=== PATIENT | male | born 1960 | race Caucasian/White ===

== ENCOUNTER → 2021-12-12 08:42 | Outpatient (CLI) | payer OTHER, BC, SELFPAY ==
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
--- NOTE | 2021-12-12 08:56 | XR_ITS ---
FINAL REPORT CLINICAL HISTORY: R/O METAL IN EYES for MRI FINDINGS: ORBITS Look up and look down views of the orbits were obtained. No foreign bodies were identified. No fracture is seen. The visualized sinuses are clear. IMPRESSION: No foreign bodies identified. Reviewed, Interpreted and Dictated by Javier Teran MD Transcribed by Allan Macias Authenticated by Javier Teran MD on 12/12/2021 09:46:24 AM [facility]
== END ==
PROVIDERS: PCP Family Medicine; Visit Provider Family Medicine
DX: H05.53 Retained (old) foreign body following penetrating wound of bilateral orbits (principal); S89.91XA Unspecified injury of right lower leg, initial encounter; M25.561 Pain in right knee; M23.91 Unspecified internal derangement of right knee
CPT/HCPCS: 70200; 73721

== ENCOUNTER 2025-02-12 20:25 | Emergency (ER) | payer BC, SELFPAY ==
[2025-02-12] VITALS (7 sets, daily range): BP systolic 102–152; BP diastolic 65–99; PULSE 56–70; RESP 14–17; TEMP 36.7; O2SAT 95–99; BMI 25.8
--- NOTE | 2025-02-12 20:25 | ECG_ITS ---
APPROVED REPORT Exam: Resting ECG HR:67 bpm ECG Measurements Heart Rate 67 AXES NC 166 P 40 QRSd 90 QRS 25 QT 371 T 44 QTc 387 Conclusion SINUS RHYTHM NORMAL ECG Electronically signed by : ANH RACHEL, 02/12/2025 23:28:21
--- OUTSIDE RECORDS SUMMARY | 2025-02-12 20:38 | XMS_ITS | Clinical Summary ---
Author Organization [facility] Address [address] [place] [address] Care Team Providers Care Catering Assistant Name Role Phone Unavailable Primary Care Provider Unavailabl e Social History Tobacco Use Types Packs/Day Years Used Date Smoking Tobacco: Never Assessed Sex and Gender Information Value Date Recorded Sex Assigned at Male 04/02/2022 10:01 AM CDT Legal Sex Male 10:01 AM CDT Gender Identity Male 04/02/2022 10:01 AM CDT Sexual Orientation Not on file Plan of Treatment Not on file
--- OUTSIDE RECORDS SUMMARY | 2025-02-12 20:38 | XMS_ITS | Referral Summary ---
Author Organization [facility] Address [address] [place] [address] Care Team Providers Care Customer Acquisition Manager Name Role Phone Unavailable Primary Care Provider [...]
--- NOTE | 2025-02-12 20:52 | ED_ITS ---
Discharge Plan Disposition Patient Disposition: Xfer Short-Term Hosp Condition: Good Prescriptions Prescriptions: No Action No Known Home Medications Referrals Follow up/Referrals: Provider,MD Amanda [Referring, Medical] - See instructions Clinical Impressions Clinical Impression: Splenic mass, Hemorrhage of spleen, Alcohol abuse, Hyponatremia Stand Alone Forms Stand Alone Forms: Transfer Record - ED Print Language Print Language: Albanian Discharge ED Provider: Roshan Nolan General Adult HPI <Roshan Nolan MD - Last Filed: 02/12/25 23:31> General Chief complaint: Chest Pain Stated complaint: chest pain Time Seen by Provider: 02/12/25 20:52 Mode of Arrival: Ambulatory Source of Information: Patient Description of Symptoms (Recalled from ER Triage Doc. by RN): pt reports chest pain that began at work today that is worse with movement. pt unsure of what time it began. pt reports it is worse on the right side. History of Present Illness HPI narrative: The patient, a 64-year-old male, presents to the Emergency Department with a chief complaint of severe right-sided chest pain that started today. He describes a dull pain localized to the right side of his chest, which worsens with movement, particularly when getting up or stretching his arm. The patient experiences intermittent sharp exacerbations of the pain, even when sitting still. The pain is aggravated by movement and deep breathing, though he states it don't hurt, hurt with breathing but he can feel it. He denies any abdominal pain. The patient mentions difficulty performing certain movements at work due to the pain. He describes having to reverse to his left side when getting up to avoid exacerbating the pain. His notes that he has a high pain tolerance, suggesting the severity of his current complaint. Associated symptoms include occasional feelings of irregular heartbeats. The patient also reports a history of night sweats and cold, clammy skin during sleep, which his states has been ongoing since last year. He denies any recent cough, flu-like symptoms, or other illnesses. The patient mentions a tick bite from a hiking trip 3-4 weeks ago but reports no subsequent rash. The patient's medical history is significant for a knee replacement three years ago. He takes a daily multivitamin for those over 50 and Aleve for arthritis pain. The patient denies smoking, any known heart or lung conditions, and does not report any rash on his skin. His occupation involves leaning over frequently, which may be relevant to his current symptoms. Please note that above description of symptoms, in this electronic medical record under categorization of recalled from ER triage doctor by RN are reflective of an initial nursing assessment, however, is not reflective of my full history and physical exam that was personally taken and clarified. Consequentially, this preceding description of symptoms, which may include the patient's categorized chief complaint in the EMR, do not reflect my personal clinical impression, and the ultimate description of history of present illness and patient stated complaints should be deferred to this section of the note. Unless stated otherwise or congruent with this section of the note, additional signs, symptoms, or incongruence should be interpreted as inaccurate with my clinical impression. Related Data Home Medications ?Medication ?Instructions ?Recorded ?Confirmed No Known Home Medications 04/09/1904/02 Allergies Allergy/AdvReac Type Severity Reaction Status Date / Time No Known Allergies Allergy Verified 04/17/19 07:14 [facility] <Roshan Nolan MD - Last Filed: 02/12/25 23:31> [facility] Disclaimer: The information contained in this section may have been updated after the patient was seen, as this information can be updated by other users. Social History (Updated 02/12/25 @ 23:31 by Roshan Nolan MD) Smoking Status: Never smoker alcohol intake: current current occupational status: employed Travel in the last 8 weeks?: None caffeine: Yes Have you lived/traveled outside US in past 30 days?: No Contact w/someone who lives/traveled outside US past 30 days?: No Exposure to someone with infectious disease in past 14 days?: No Do you have a fever (greater than 100.4 F or 38 C)?: No Have you tested positive for COVID-19?: No Exposed to someone with COVID-19 in past 14 days?: No Do you have a sore throat?: No Do you have a cough?: No Do you have any weakness?: No Do you have any diarrhea?: No Are you experiencing any unusual bleeding?: No Do you have any muscle aches/pain?: No Do you have any abdominal pain?: No Are you experiencing loss of taste or smell?: No <Roshan Nolan MD - Last Filed: 02/12/25 23:31> ROS Obtained: Yes other As per HPI Physical Exam <Roshan Nolan MD - Last Filed: 02/12/25 23:31> General General appearance: alert and in no apparent distress Head Head exam: atraumatic and normocephalic Eye Eye exam: Present normal appearance Neck Neck exam: Present normal inspection Chest Chest inspection: Present normal inspection and symmetric chest wall rise Respiratory Respiratory exam: Present normal lung sounds bilaterally; Absent respiratory distress Cardiovascular Cardiovascular exam: Present regular rate and normal rhythm Abdominal Exam Abdominal exam: Present soft Neurological Exam Neurological exam: Present alert and oriented X3 Psychiatric Psychiatric exam: Present normal affect and normal mood Skin Skin exam: Present warm and dry Other Other exam information: Reproducible right-sided chest wall tenderness to palpation. No rash. No abdominal tenderness Medical Decision Making <Roshan Nolan MD - Last Filed: 02/12/25 23:31> Medical Records Medical records reviewed: Yes I reviewed the patient's medical records. Screening: Per USPSTF and CDC recommendations, given the prevalence of disease in our region, it is our hospital?s policy to screen for HIV and viral Hepatitis for all patients aged 18 and over and those with ongoing risk factors. [place] Inquiry Pt receiving controlled substance: No Vital Signs: 02/12/25 20:29 02/12/25 20:30 02/12/25 21:00 Temperature 98.1 F Temperature Source Oral Pulse Rate 67 67 Pulse Rate [Right] 70 Respiratory Rate 17 14 Blood Pressure 135/88 Blood Pressure [Right Arm] 152/99 H Blood Pressure Mean [Right Arm] 116 Blood Pressure Source Blood Pressure Position 02 Sat by Pulse Oximetry 97 97 Oxygen Delivery Method 02/12/25 21:30 02/12/25 22:01 02/12/25 23:00 Temperature Temperature Source Pulse Rate 65 69 64 Pulse Rate [Right] Respiratory Rate 14 16 15 Blood Pressure 125/81 117/74 102/65 L Blood Pressure [Right Arm] Blood Pressure Mean [Right Arm] Blood Pressure Source Blood Pressure Position 02 Sat by Pulse Oximetry 99 95 95 Oxygen Delivery Method 02/12/25 23:30 02/13/25 00:00 02/13/25 01:00 Temperature Temperature Source Pulse Rate 56 L 62 59 L Pulse Rate [Right] Respiratory Rate 14 17 16 Blood Pressure 110/71 119/75 142/92 H Blood Pressure [Right Arm] Blood Pressure Mean [Right Arm] Blood Pressure Source Blood Pressure Position 02 Sat by Pulse Oximetry 95 97 99 Oxygen Delivery Method 02/13/25 01:15 02/13/25 01:30 02/13/25 02:03 Temperature 98 F Temperature Source Oral Pulse Rate 73 63 68 Pulse Rate [Right] Respiratory Rate 16 15 20 Blood Pressure 126/81 118/76 118/76 Blood Pressure [Right Arm] Blood Pressure Mean [Right Arm] Blood Pressure Source Automatic Cuff Blood Pressure Position Sitting 02 Sat by Pulse Oximetry 96 94 L Oxygen Delivery Method Room Air Lab Data Lab Results 02/12/25 20:23: PT 10.6, INR 0.95 02/12/25 20:27: WBC 9.5, RBC 4.54 L, Hgb 14.4, Hct 41.3 L, MCV 91.0, MCH 31.7 H, MCHC 34.9, RDW 12.8, Plt Count 180, MPV 10.0, Neut % (Auto) 59.3, Lymph % (Auto) 29.3, Brown % (Auto) 7.8, Eos % (Auto) 2.9, Baso % (Auto) 0.3, Neut # (Auto) 5.6, Lymph # (Auto) 2.8, Brown # (Auto) 0.7, Eos # (Auto) 0.3, Baso # (Auto) 0.0, D- Dimer 0.53 H, Sodium 130 L, Potassium 4.1, Chloride 102, Carbon Dioxide 22, Anion Gap 10.1, BUN 14, Creatinine 0.90, Estimated Creat Clear 84, Estimated GFR 85, Est GFR ( Amer) 103, Glucose 91, Calcium 9.6, Total Bilirubin 0.7, AST 42, ALT 34, Alkaline Phosphatase 37 L, Troponin I < 0.01, Total Protein 7.2, Albumin 4.4, Globulin 2.8, Albumin/Globulin Ratio 1.6, Lipase 162, HCV Ab JASON w/Rflx PCR Qn Negative, HIV Ag/Ab Combo Qual Negative 02/13/25 00:09: Troponin I < 0.01 02/12/25 20:27 02/12/25 20:27 Orders (Tests/Meds): ED MEDICATIONS Discontinued Medications Generic Name Dose Route Start Last Admin Trade Name Freq PRN Reason Stop Dose Admin Iopamidol 70 ml 02/12/25 22:05 02/12/25 22:05 Iopamidol-370 (76%);100ml Bottle IV 02/12/25 22:06 70 ml ONCE ONE Administration Iopamidol 80 ml 02/12/25 23:41 02/12/25 23:47 Iopamidol-370 (76%);100ml Bottle IV 02/12/25 23:42 80 ml ONCE ONE Administration Sodium Chloride 40 ml 02/12/25 22:05 02/12/25 22:05 0.9 % Sodium Chloride 50 Ml Vial IV 02/12/25 22:06 40 ml ONCE ONE Administration Sodium Chloride 10 ml 02/12/25 22:05 02/12/25 22:05 Sodium Chloride 0.9% 10ml Syr (Rad Only) IV 03/14/25 22:04 10 ml NEEDED PRN Administration Maintain IV Site Sodium Chloride 10 ml 02/12/25 23:41 02/12/25 23:47 Sodium Chloride 0.9% 10ml Syr (Rad Only) IV 03/14/25 23:40 10 ml NEEDED PRN Administration Maintain IV Site Sodium Chloride 40 ml 02/12/25 23:41 02/12/25 23:47 0.9 % Sodium Chloride 50 Ml Vial IV 02/12/25 23:42 40 ml ONCE ONE Administration ORDERS Category Date Time Status CT angio abdomen pelvis Stat Cat Scan 02/12/25 23:11 Completed CTA Chest [CT angio chest PE protocol] Stat Cat Scan 02/12/25 21:49 Completed XR chest 2V Stat Exams 02/12/25 21:09 Completed CBC w/Auto Diff [Complete Blood Count Auto Diff] Stat Lab 02/12/25 20:27 Completed CMP [Comprehensive Metabolic Panel] Stat Lab 02/12/25 20:27 Completed D-Dimer Stat Lab 02/12/25 20:27 Completed HIV Combo Stat Lab 02/12/25 20:27 Completed Hepatitis C Ab Qual. W/ RFX Stat Lab 02/12/25 20:27 Completed Lipase Stat Lab 02/12/25 20:27 Completed PT INR [Prothrombin Time INR] Stat Lab 02/13/25 00:00 Completed Troponin I Q3H Lab 02/12/25 20:27 Completed Troponin I Q3H Lab 02/13/25 00:09 Completed Medical Decision Narrative: Patient with history and exam per above presenting for evaluation of right- sided chest pain Diagnoses considered include ACS, PE, pneumonia, costochondritis, fracture, among others ED workup and treatment included: ED MEDICATIONS Generic Name Dose Route Start Last Admin Trade Name Freq PRN Reason Stop Dose Admin Sodium Chloride 10 ml 02/12/25 22:05 02/12/25 22:05 Sodium Chloride 0.9% 10ml Syr (Rad Only) IV 03/14/25 22:04 10 ml NEEDED PRN Administration Maintain IV Site Discontinued Medications Generic Name Dose Route Start Last Admin Trade Name Freq PRN Reason Stop Dose Admin Iopamidol 70 ml 02/12/25 22:05 02/12/25 22:05 Iopamidol-370 (76%);100ml Bottle IV 02/12/25 22:06 70 ml ONCE ONE Administration Sodium Chloride 40 ml 02/12/25 22:05 02/12/25 22:05 0.9 % Sodium Chloride 50 Ml Vial IV 02/12/25 22:06 40 ml ONCE ONE Administration ORDERS Category Date Time Status CT angio abdomen pelvis Stat Cat Scan 02/12/25 23:11 Ordered CTA Chest [CT angio chest PE protocol] Stat Cat Scan 02/12/25 21:49 Completed XR chest 2V Stat Exams 02/12/25 21:09 Completed CBC w/Auto Diff [Complete Blood Count Auto Diff] Stat Lab 02/12/25 20:27 Completed CMP [Comprehensive Metabolic Panel] Stat Lab 02/12/25 20:27 Completed D-Dimer Stat Lab 02/12/25 20:27 Completed HIV Combo Stat Lab 02/12/25 20:27 Completed Hepatitis C Ab Qual. W/ RFX Stat Lab 02/12/25 20:27 Completed Lipase Stat Lab 02/12/25 20:27 Completed Troponin I Q3H Lab 02/12/25 20:27 Completed Troponin I Q3H Lab 02/13/25 00:15 Ordered Labs were independently interpreted by me, significant for elevated D-dimer, no leukocytosis, hemoglobin within normal limits, mild hyponatremia Imaging was independently visualized and interpreted by me, significant for findings concerning for splenic rupture on contralateral side of patient's pain. This was observed on CT PE. Patient has no symptoms in that region at this time. CT angio abdomen pelvis ordered to further evaluate. Care was transferred to incoming physician. <Rubina Hoff MD - Last Filed: 02/13/25 02:14> Vital Signs: 02/12/25 20:29 02/12/25 20:30 02/12/25 21:00 Temperature 98.1 F Temperature Source Oral Pulse Rate 67 67 Pulse Rate [Right] 70 Respiratory Rate 17 14 Blood Pressure 135/88 Blood Pressure [Right Arm] 152/99 H Blood Pressure Mean [Right Arm] 116 Blood Pressure Source Blood Pressure Position 02 Sat by Pulse Oximetry 97 97 Oxygen Delivery Method 02/12/25 21:30 02/12/25 22:01 02/12/25 23:00 Temperature Temperature Source Pulse Rate 65 69 64 Pulse Rate [Right] Respiratory Rate 14 16 15 Blood Pressure 125/81 117/74 102/65 L Blood Pressure [Right Arm] Blood Pressure Mean [Right Arm] Blood Pressure Source Blood Pressure Position 02 Sat by Pulse Oximetry 99 95 95 Oxygen Delivery Method 02/12/25 23:30 02/13/25 00:00 02/13/25 01:00 Temperature Temperature Source Pulse Rate 56 L 62 59 L Pulse Rate [Right] Respiratory Rate 14 17 16 Blood Pressure 110/71 119/75 142/92 H Blood Pressure [Right Arm] Blood Pressure Mean [Right Arm] Blood Pressure Source Blood Pressure Position 02 Sat by Pulse Oximetry 95 97 99 Oxygen Delivery Method 02/13/25 01:15 02/13/25 01:30 02/13/25 02:03 Temperature 98 F Temperature Source Oral Pulse Rate 73 63 68 Pulse Rate [Right] Respiratory Rate 16 15 20 Blood Pressure 126/81 118/76 118/76 Blood Pressure [Right Arm] Blood Pressure Mean [Right Arm] Blood Pressure Source Automatic Cuff Blood Pressure Position Sitting 02 Sat by Pulse Oximetry 96 94 L Oxygen Delivery Method Room Air Lab Data Lab Results 02/12/25 20:23: PT 10.6, INR 0.95 02/12/25 20:27: WBC 9.5, RBC 4.54 L, Hgb 14.4, Hct 41.3 L, MCV 91.0, MCH 31.7 H, MCHC 34.9, RDW 12.8, Plt Count 180, MPV 10.0, Neut % (Auto) 59.3, Lymph % (Auto) 29.3, Brown % (Auto) 7.8, Eos % (Auto) 2.9, Baso % (Auto) 0.3, Neut # (Auto) 5.6, Lymph # (Auto) 2.8, Brown # (Auto) 0.7, Eos # (Auto) 0.3, Baso # (Auto) 0.0, D- Dimer 0.53 H, Sodium 130 L, Potassium 4.1, Chloride 102, Carbon Dioxide 22, Anion Gap 10.1, BUN 14, Creatinine 0.90, Estimated Creat Clear 84, Estimated GFR 85, Est GFR ( Amer) 103, Glucose 91, Calcium 9.6, Total Bilirubin 0.7, AST 42, ALT 34, Alkaline Phosphatase 37 L, Troponin I < 0.01, Total Protein 7.2, Albumin 4.4, Globulin 2.8, Albumin/Globulin Ratio 1.6, Lipase 162, HCV Ab JASON w/Rflx PCR Qn Negative, HIV Ag/Ab Combo Qual Negative 02/13/25 00:09: Troponin I < 0.01 Orders (Tests/Meds): ED MEDICATIONS Discontinued Medications Generic Name Dose Route Start Last Admin Trade Name Freq PRN Reason Stop Dose Admin Iopamidol 70 ml 02/12/25 22:05 02/12/25 22:05 Iopamidol-370 (76%);100ml Bottle IV 02/12/25 22:06 70 ml ONCE ONE Administration Iopamidol 80 ml 02/12/25 23:41 02/12/25 23:47 Iopamidol-370 (76%);100ml Bottle IV 02/12/25 23:42 80 ml ONCE ONE Administration Sodium Chloride 40 ml 02/12/25 22:05 02/12/25 22:05 0.9 % Sodium Chloride 50 Ml Vial IV 02/12/25 22:06 40 ml ONCE ONE Administration Sodium Chloride 10 ml 02/12/25 22:05 02/12/25 22:05 Sodium Chloride 0.9% 10ml Syr (Rad Only) IV 03/14/25 22:04 10 ml NEEDED PRN Administration Maintain IV Site Sodium Chloride 10 ml 02/12/25 23:41 02/12/25 23:47 Sodium Chloride 0.9% 10ml Syr (Rad Only) IV 03/14/25 23:40 10 ml NEEDED PRN Administration Maintain IV Site Sodium Chloride 40 ml 02/12/25 23:41 02/12/25 23:47 0.9 % Sodium Chloride 50 Ml Vial IV 02/12/25 23:42 40 ml ONCE ONE Administration ORDERS Category Date Time Status CT angio abdomen pelvis Stat Cat Scan 02/12/25 23:11 Completed CTA Chest [CT angio chest PE protocol] Stat Cat Scan 02/12/25 21:49 Completed XR chest 2V Stat Exams 02/12/25 21:09 Completed CBC w/Auto Diff [Complete Blood Count Auto Diff] Stat Lab 02/12/25 20:27 Completed CMP [Comprehensive Metabolic Panel] Stat Lab 02/12/25 20:27 Completed D-Dimer Stat Lab 02/12/25 20:27 Completed HIV Combo Stat Lab 02/12/25 20:27 Completed Hepatitis C Ab Qual. W/ RFX Stat Lab 02/12/25 20:27 Completed Lipase Stat Lab 02/12/25 20:27 Completed PT INR [Prothrombin Time INR] Stat Lab 02/13/25 00:00 Completed Troponin I Q3H Lab 02/12/25 20:27 Completed Troponin I Q3H Lab 02/13/25 00:09 Completed Medical Decision Narrative: Patient with history and exam per above presenting for evaluation of right- sided chest pain Diagnoses considered include ACS, PE, pneumonia, costochondritis, fracture, among others ED workup and treatment included: ED MEDICATIONS Generic Name Dose Route Start Last Admin Trade Name Freq PRN Reason Stop Dose Admin Sodium Chloride 10 ml 02/12/25 22:05 02/12/25 22:05 Sodium Chloride 0.9% 10ml Syr (Rad Only) IV 03/14/25 22:04 10 ml NEEDED PRN Administration Maintain IV Site Discontinued Medications Generic Name Dose Route Start Last Admin Trade Name Freq PRN Reason Stop Dose Admin Iopamidol 70 ml 02/12/25 22:05 02/12/25 22:05 Iopamidol-370 (76%);100ml Bottle IV 02/12/25 22:06 70 ml ONCE ONE Administration Sodium Chloride 40 ml 02/12/25 22:05 02/12/25 22:05 0.9 % Sodium Chloride 50 Ml Vial IV 02/12/25 22:06 40 ml ONCE ONE Administration ORDERS Category Date Time Status CT angio abdomen pelvis Stat Cat Scan 02/12/25 23:11 Ordered CTA Chest [CT angio chest PE protocol] Stat Cat Scan 02/12/25 21:49 Completed XR chest 2V Stat Exams 02/12/25 21:09 Completed CBC w/Auto Diff [Complete Blood Count Auto Diff] Stat Lab 02/12/25 20:27 Completed CMP [Comprehensive Metabolic Panel] Stat Lab 02/12/25 20:27 Completed D-Dimer Stat Lab 02/12/25 20:27 Completed HIV Combo Stat Lab 02/12/25 20:27 Completed Hepatitis C Ab Qual. W/ RFX Stat Lab 02/12/25 20:27 Completed Lipase Stat Lab 02/12/25 20:27 Completed Troponin I Q3H Lab 02/12/25 20:27 Completed Troponin I Q3H Lab 02/13/25 00:15 Ordered Labs were independently interpreted by me, significant for elevated D-dimer, no leukocytosis, hemoglobin within normal limits, mild hyponatremia Imaging was independently visualized and interpreted by me, significant for findings concerning for splenic rupture on contralateral side of patient's pain. This was observed on CT PE. Patient has no symptoms in that region at this time. CT angio abdomen pelvis ordered to further evaluate. Care was transferred to incoming physician. Hoff: Upon my assumption of care patient is stable, resting comfortably, I agree with the assessment and plan from Dr. Nolan. Abdominal exam is reassuring. CTA abdomen pelvis personally interpreted demonstrates a large splenic mass with what appears to be blood but no active extravasation. I received a phone call from the reading radiologist, who explained that there appears to be a large mass with partial rupture and while it does not have active extravasation there is blood around the mass and he has high concern for rebleed. He recommended embolization or splenectomy. He reported that this is most likely hemangioma but angiosarcoma or other malignancy could not be excluded. I appreciate his interpretation and recommendations. With these findings, I reexamined the patient and remains hemodynamically stable, GCS 15. Abdominal exam benign. I explained the findings with him and recommended transfer to higher level of care. He and family at bedside are agreeable to this plan. [facility] was contacted for weather check, they are not currently flying in this area due to weather. Reached out to [facility] and I spoke with Dr. Kraus at 0017. 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 She is going to reach out to a specialist and call back. At this time with no active bleeding and stable hemodynamics she does not recommend TXA administration. I received a call back at [address] Kraus again. She reports she spoke with the emergency general surgery team and stated that well the general surgery team does not know exactly what it is they do not believe it is acute and that the patient does not meet criteria for an immediate surgical emergency therefore the patient cannot override diverged. Patient was not accepted to [facility]. I advocated for the patient prior to hang up the phone that this facility is not capable of keeping this type of patient here with a high risk for rebleed and risk of mortality from rebleed as well as not having IR or emergency surgery able to remove this spleen if the patient decompensates. Dr. Kraus understands but unfortunately cannot override diver for this patient. Reached out to [facility], we received a call back and I spoke with the transfer center at 0050 who reported they reached out to their general surgeon, Dr. Jordan, who refused this patient stating this type of patient needs to be at a [facility]. I explained that [facility] has already refused this patient since he was not actively bleeding. While they understand this at [facility], they refused this patient because they do not have abilities to take care of him due to risk of decompensation and believe he requires higher level of care. Reached out to [facility] in [place]. They called back at 0108 and after speaking with their transfer team and Dr. Burk with general surgery, they also refused this patient indicating the patient requires higher level of care and [facility]. [facility] between [facility] and [facility] was to go to [facility]. We reached out to them and I received a call back at [phone]. I spoke with Dr. Leggett with General surgery first, she agrees the patient requires higher level of care and agrees the patient can be transferred to but does not recommend administration of TXA. She also does not recommend administration of blood at this time. I then spoke with Dr. Worley at the ER. Patient was accepted for ER to ER transfer. He will go by [facility]. Patient was reassessed immediately prior to transfer, he remains hemodynamically stable, benign abdomen, GCS 15, airway patent, resting comfortably. He is appropriate for transfer at this time. Patient transferred in stable condition with [facility] ambulance. Critical Care <Roshan Nolan MD - Last Filed: 02/12/25 23:31> Critical Care Time Critical Care Time: No <Rubina Hoff MD - Last Filed: 02/13/25 02:14> Critical Care Time Critical Care Time: Yes Attestation: On 02/12/25, the high probability of a clinically significant, sudden or life threatening deterioration of the following system(s) required my full and direct attention, intervention and personal management. The time I documented below is in addition to time spent performing reported procedures but includes the following listed in this critical care notation. Total Time Total Critical Care Time: 35
--- NOTE | 2025-02-12 21:09 | XR_ITS ---
PROCEDURE INFORMATION: Exam: XR Chest Exam date and time: 02/12/2025 9:08 PM Age: 64 years old Clinical indication: Pain; Right-sided; Additional info: R sided chest pain TECHNIQUE: Imaging protocol: Radiologic exam of the chest. Views: 2 views. COMPARISON: No relevant prior studies available. FINDINGS: Lungs: Unremarkable. No consolidation. Pleural spaces: Unremarkable. No pleural effusion. No pneumothorax. Heart/Mediastinum: Unremarkable. No cardiomegaly. Bones/joints: Unremarkable. IMPRESSION: No acute findings.
[2025-02-12 21:14] LABS: Basophils % 0.3 % (0.1-2.0); Eosinophils # 0.3 Kmm3 (0.0-0.4); Eosinophils % 2.9 % (0.1-12.0); Hematocrit 41.3 % (42.0-52.0); Hemoglobin 14.4 g/dL (14.1-18.0); Immature Granulocytes # 0.04 10^3uL; Immature Granulocytes % 0.4 %; Lymphocytes # 2.8 K/mm3 (0.7-4.5); Lymphocytes % 29.3 % (10-50); Mean Corpuscular HGB Conc 34.9 g/dL (31.8-35.4); Mean Corpuscular Hemoglobin 31.7 pg (27.0-31.2); Monocytes # 0.7 K/mm3 (0.1-1.0); Monocytes % 7.8 % (1.7-9.3); Neutrophils # 5.6 K/mm3 (1.8-7.8); Neutrophils % 59.3 % (37.0-80.0); Nucleated Red Blood Cells # 0 10^3/uL; Nucleated Red Blood Cells % 0 %; Platelet Count 180 K/mm3 (142-424); Red Blood Count 4.54 M/mm3 (4.60-6.20); Red Cell Distribution Width 12.8 % (11.5-17.5); Red Cell Distribution Width-SD 42.5 fL; White Blood Count 9.5 K/mm3 (4.8-10.8)
[2025-02-12 21:27] LABS: Alanine Aminotransferase 34 U/L (12-78); Albumin Level 4.4 g/dl (3.5-5.0); Albumin/Globulin Ratio 1.6 (1.1-1.8); Alkaline Phosphatase 37 U/L (38-126); Anion Gap 10.1 mEq/L (5-15); Aspartate Amino Transferase 42 U/L (17-59); Bilirubin,Total 0.7 mg/dl (0.2-1.3); Blood Urea Nitrogen 14 mg/dl (9-20); Calcium 9.6 mg/dl (8.4-10.2); Carbon Dioxide 22 mmol/L (22.0-30.0); Chloride 102 mmol/L (98-107); Creatinine Clearance Estimated 84 mL/min (50-200); Estimated Glomerular Filt Rate 85 ml/min (>60); GFR (African American) 103 ML/MIN (>60); Globulin 2.8 g/dL (1.3-3.2); Glucose 91 mg/dl (74-100); Lipase 162 U/L (23-300); Potassium 4.1 mmoL/L (3.5-5.1); Sodium 130 mmol/L (136-145); Total Protein,Serum 7.2 g/dl (6.3-8.2)
[2025-02-12 21:31] LABS: D-Dimer 0.53 ug/mL (0.0-0.5)
[2025-02-12 21:33] LABS: HIV Combo NEGATIVE (Negative)
[2025-02-12 21:40] LABS: Troponin I < 0.01 ng/ml (0.00-0.034)
[2025-02-12 21:42] LABS: Hepatitis C Ab Qual. W/ RFX NEGATIVE (Negative)
--- NOTE | 2025-02-12 21:49 | CT_ITS ---
PROCEDURE INFORMATION: Exam: CTA Chest With Contrast Exam date and time: 02/12/2025 10:01 PM Age: 64 years old Clinical indication: Other: R sided pleuritic chest pain, elevated dimer TECHNIQUE: Imaging protocol: Computed tomographic angiography of the chest with contrast. Exam focused on the arteries. 3D rendering (Not supervised by radiologist): MIP and/or 3D reconstructed images were created by the technologist. Radiation optimization: All CT scans at this facility use at least one of these dose optimization techniques: automated exposure control; mA and/or kV adjustment per patient size (includes targeted exams where dose is matched to clinical indication); or iterative reconstruction. Contrast material: ISO 370; Contrast volume: 75 ml; Contrast route: INTRAVENOUS (IV); COMPARISON: CR XR CHEST 2V 02/12/2025 9:08 PM FINDINGS: Pulmonary arteries: No central or large peripheral pulmonary emboli. Aorta: There is mild dilation of the ascending aorta. Lungs: No focal infiltrates Pleural spaces: No pneumothorax or pleural effusion. Heart: Unremarkable. No cardiomegaly. No pericardial effusion. Lymph nodes: Unremarkable. No enlarged lymph nodes. Liver: Small low-density foci posterior segment right hepatic lobe measuring 9.5 mm; best evaluated using ultrasound. Intraperitoneal space: Focal high density fluid around the spleen measuring 50 Hounsfield units ; consistent with blood also in the left subdiaphragmatic region coronal image 1001/76 and image 5/109-114. Bones/joints: Unremarkable. No acute fracture. Soft tissues: Unremarkable. IMPRESSION: 1. Focal high density fluid around the spleen measuring 50 Hounsfield units ; consistent with blood also in the left subdiaphragmatic region coronal image 1001/76 and image 5/109-114. Possible spontaneous splenic rupture. Clinical correlation recommended. 2. There is mild dilation of the ascending aorta. 3. No central or large peripheral pulmonary emboli. 4. No focal infiltrates 5. No pneumothorax or pleural effusion. 6. Small low-density foci posterior segment right hepatic lobe measuring 9.5 mm; best evaluated using ultrasound.
[2025-02-12] MEDS: 0.9 % SODIUM CHLORIDE 50 ML VIAL 40 ML IV ×2 (22:05→23:47)
[2025-02-12] MEDS: IOPAMIDOL-370 (76%);100ML BOTTLE 70 ML IV (22:05)
[2025-02-12] MEDS: SODIUM CHLORIDE 0.9% 10ML SYR (RAD ONLY) 10 ML IV ×2 (22:05→23:47)
--- NOTE | 2025-02-12 23:11 | CT_ITS ---
PROCEDURE INFORMATION: Exam: CTA Abdomen and Pelvis With Contrast Exam date and time: 02/12/2025 11:31 PM Age: 64 years old Clinical indication: Abnormal findings; Abnormal diagnostic imaging exam; Abnormality: Possible spontaneous splenic rupture; Exam and body structure: Cta pe; Additional info: Concern for splenic bleed in chest CT TECHNIQUE: Imaging protocol: Computed tomographic angiography of the abdomen and pelvis with contrast. Exam focused on the arteries. 3D rendering (Not supervised by radiologist): MIP and/or 3D reconstructed images were created by the technologist. Radiation optimization: All CT scans at this facility use at least one of these dose optimization techniques: automated exposure control; mA and/or kV adjustment per patient size (includes targeted exams where dose is matched to clinical indication); or iterative reconstruction. Contrast material: ISOUVE 370; Contrast volume: 80 ml; Contrast route: INTRAVENOUS (IV); COMPARISON: CT ANGIO CHEST PE PROTOCOL 02/12/2025 10:01 PM FINDINGS: Lungs: Lung bases are clear. Esophagus: The esophagus is normal. Aorta: The aorta is normal. Celiac trunk and mesenteric arteries: No occlusion or significant stenosis. Renal arteries: No occlusion or significant stenosis. Right iliac arteries: No occlusion or significant stenosis. Left iliac arteries: No occlusion or significant stenosis. Other arteries: Visceral arteries are patent. Liver: Small low-density lesion posterior segment right hepatic lobe measuring 8 mm consistent with a cyst. Gallbladder and biliary ducts: The gallbladder is normal. Pancreas: Pancreas appears normal. Spleen: Rounded heterogeneous enhancing spleen or splenic mass measuring 7.3 cm axial image 5/35 and coronal image 1001/97 and sagittal image 1002/136. Perifocal high density blood around the spleen and in the left subdiaphragmatic region coronal image 1001/90. Adrenal glands: The adrenal glands appear normal.The kidneys are normal. Kidneys and ureters: See Adrenal glands finding. Stomach and bowel: The stomach is normal. Nonspecific bowel gas pattern. Appendix: No secondary signs of appendicitis. Intraperitoneal space: See Spleen finding. Lymph nodes: Unremarkable. No enlarged lymph nodes. Urinary bladder: Unremarkable. No mass. Reproductive: Unremarkable as visualized. Bones/joints: The lumbar spine demonstrates marked degenerative changes at multiple levels. Degenerative disc space area L3-L4, L4-L5 levels with discogenic sclerosis and small posterior projecting disc osteophyte complexes. Vacuum disc phenomenon at L5-S1. Soft tissues: Fat filled right inguinal hernia. Other findings: No evidence for active extravasation. IMPRESSION: 1. Rounded heterogeneous enhancing spleen or splenic mass measuring 7.3 cm axial image 5/35 and coronal image 1001/97 and sagittal image 1002/136. Perifocal high density blood around the spleen and in the left subdiaphragmatic region coronal image 1001/90. 2. 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 Other lesions could have a similar appearance. Clinical correlation recommended. 3. The propensity for further bleeding is not known. An evidence based article is listed below. 4. No evidence for active extravasation. 5. The aorta is normal. 6. Visceral arteries are patent. BRIEF RESEARCH REPORT article Front. Cardi[facility]asc. Med., 01 February 2022 [employer] [employer] Volume 9 - 2022 [email or web address] Splenic Artery Embolization and Splenectomy for Spontaneous Rupture of Splenic Hemangioma and Its Imaging Features Spontaneous splenic rupture (SSR) is a rare, often life-threatening, acute abdominal injury that requires immediate diagnosis and early treatment. SSR is mainly treated surgically or conservatively. A few cases of interventional embolization for SSRs have been reported.
[2025-02-12] MEDS: IOPAMIDOL-370 (76%);100ML BOTTLE 80 ML IV (23:47)
[2025-02-13] VITALS: BP 119/75; PULSE 62; RESP 17; O2SAT 97
--- NOTE | 2025-02-13 00:10 | PC.NURSE ---
GRACE Howard calling for a weather check with [facility].
--- NOTE | 2025-02-13 00:14 | PC.NURSE ---
called [facility] for weather check for potential transfer.
[2025-02-13 00:44] LABS: Troponin I < 0.01 ng/ml (0.00-0.034)
--- NOTE | 2025-02-13 00:50 | PC.NURSE ---
called [facility] to see about transferring patient. stated they would call back
[2025-02-13 01:00] VITALS: BP 142/92; PULSE 59; RESP 16; O2SAT 99
--- NOTE | 2025-02-13 01:04 | PC.NURSE ---
called [facility] to see about transferring pt. stated they would call back
[2025-02-13 01:15] VITALS: BP 126/81; PULSE 73; RESP 16; O2SAT 96
[2025-02-13 01:30] VITALS: BP 118/76; PULSE 63; RESP 15; O2SAT 94
[2025-02-13 01:48] LABS: INR 0.95 (0.9-1.1); Prothrombin Time 10.6 seconds (10.1-12.5)
[2025-02-13 02:03] VITALS: BP 118/76; PULSE 68; RESP 20; TEMP 36.6; O2SAT 98
--- NOTE | 2025-02-13 02:11 | PC.NURSE ---
Called report to [facility] ED and spoke with Amelie EDWARDS. EMS called for transport. Also called and spoke with about where patient was being transported to.
== END 2025-02-13 02:12 | disposition short-term general hospital (02) ==
PROVIDERS: Emergency Medicine; Emergency Provider Emergency Medicine; PCP Family Medicine
DX: D73.5 Infarction of spleen (principal); R07.9 Chest pain, unspecified; E87.1 Hypo-osmolality and hyponatremia; F10.10 Alcohol abuse, uncomplicated
CPT/HCPCS: 71046; 71275; 74174; 80053; 80074; 83690; 84484; 85025; 85378; 85610; 87389; 93005; 99291; Q9967